=== PATIENT | female | born 1980 | race Caucasian/White ===

== ENCOUNTER 2017-03-30 15:50 | Emergency (ER) | payer OTHER ==
[~2017-03-30] VITALS: Wt 105.8 kg
[2017-03-30] MEDS ORDERED: GUAIFENESIN/CODEINE 5ML CUP PO ONE (19:00)
[2017-03-30] MEDS ORDERED: nyquil (19:27)
--- NOTE | 2017-03-30 19:28 | ERD ---
ER Documentation Chief Complaint Chief Complaint COUGH WITH PHLEGM, CONGESTION, ONSET 10 DAYS HPI 36-year-old female presents here to emergency department for complaints of cough congestion runny nose wheezing on and off for 10 days. Patient has been having dry cough, does not cough up any phlegm or blood. Patient denies any dyspnea on exertion or dyspnea on lying down. Patient denies any fever chills. Patient denies any chest pain. Patient denies any sick contacts. Patient took [id number] NyQuil to help with symptoms with mild relief. ROS All systems reviewed and are negative except as per history of present illness. Medications Home Meds Reported Medications [nyquil] Unknown Strength No Conflict Check 03/30/17 Allergies Allergies: Coded Allergies: acetaminophen (Verified Allergy, Unknown, 03/30/17) hydrocodone (Verified Allergy, Unknown, 03/30/17) metoclopramide (Verified Allergy, Unknown, 03/30/17) PMhx/Soc Medical and Surgical Hx: pt denies Medical Hx, pt denies Surgical Hx Hx Alcohol Use: No Hx Substance Use: No Hx Tobacco Use: No Smoking Status: Never smoker FmHx Family History: No coronary disease, No diabetes, No other Physical Exam Vitals Vital Signs Date Time Temp Pulse Resp B/P Pulse Ox O2 Delivery O2 Flow Rate FiO2 03/30/17 16:12 97.4 99 17 130/84 98 Physical Exam GENERAL: The patient is well developed and appropriate for usual state of health, in no apparent distress. CHEST: Clear to auscultation bilaterally. There are no rales, wheezes or rhonchi. HEART: Regular rate and rhythm. No murmurs, clicks, rubs or gallops. No S3 or S4. ABDOMEN: Soft, nontender and nondistended. Good bowel sounds. No rebound or guarding. No gross peritonitis. No gross organomegaly or masses. No Irene sign or McBurney point tenderness. BACK: No midline or flank tenderness. EXTREMITIES: Equal pulses bilaterally. There is no peripheral clubbing, cyanosis or edema. No focal swelling or erythema. Full range of motion. Grossly neurovascularly intact. NEURO: Alert and oriented. Cranial nerves 2-12 intact. Motor strength in all 4 extremities with 5/5 strength. Sensation grossly intact. Normal speech and gait. SKIN: There is no apparent rash or petechia. The skin is warm and dry. HEMATOLOGIC AND LYMPHATIC: There is no evidence of excessive bruising or lymphedema. No gross cervical, axillary, or inguinal lymphadenopathy. Results 24 hrs Current Medications Medications (Trade) Dose Ordered Sig/Beatriz Route PRN Reason Start Time Stop Time Status Last Admin Dose Admin Guaifenesin/ Codeine Phosphate (Robitussin Ac Liquid Cup) 10 ml ONCE ONCE PO 03/30/17 19:00 03/30/17 19:01 DC 03/30/17 19:22 Cough medication was given here in the emergency department, verbalizing much better afterwards. PROCEDURE: XR Chest. CLINICAL INDICATION: Cough for 10 days. TECHNIQUE: Single frontal view of the chest. COMPARISON: None. FINDINGS: The cardiomediastinal silhouette is within normal limits. The lungs are clear. No signs of pleural fluid or pneumothorax are seen. The osseous structures and soft tissues are unremarkable. IMPRESSION: No evidence for active cardiopulmonary disease. RPTAT: [facility] Physician Korey Date Time Electronically viewed and signed by Physician Korey on 03/30/2017 19:48 RS/ CC: LATOSHA ANDERSON SERVICE ESTABLISHMENT ATTENDANT Procedures/MDM Medical Decision Making: Patient symptoms are most likely consistent with acute bronchitis, most likely caused by atypical infection. There is low suspicion for Pneumonia at this time since patients lungs sounds are clear, patient O2 saturation is normal and patient doesnt show any respiratory distress. Patients chest xray doesnt show infiltrates or any other cardiopulmonary emergencies at this time. There is low suspicion for other cardiopulmonary emergencies at this time such as CHF, Pulmonary Embolism, Pneumothorax, Aortic Aneurysm or any other cardiopulmonary emergencies at this time. There is low suspicion for sepsis. Patient appears well and is hemodynamically stable. Disposition: Home. Condition: Stable Prescriptions: Guaifenesin with codeine azithromycin Zyrtec albuterol Instructions: Patient is advised to take medications as prescribed. Patient is advised to rest. Patient advised to increase fluid intake, do humidifier at home and if possible, do salt water gargles. Patient is advised that if symptoms are worse, shortness of breath, uncontrolled fever, stridor, vomiting, worst signs and symptoms to return to emergency department immediately. Otherwise, patient is advised to follow up with primary doctor in 5-7 days. Disclaimer: Inadvertent spelling and grammatical errors are likely due to EHR/ dictation software use and do not reflect on the overall quality of patient care. Also, please note that the electronic time recorded on this note does not necessarily reflect the actual time of the patient encounter. Departure Diagnosis: Primary Impression: Acute bronchitis Bronchitis organism: unspecified organism Qualified Code: J20.9 - Acute bronchitis, unspecified organism Condition: Stable Patient Instructions: Bronchitis With Wheezing (Adult) Additional Instructions: Patient is advised to take medications as prescribed. Patient is advised to rest. Patient advised to increase fluid intake, do humidifier at home and if possible, do salt water gargles. Patient is advised that if symptoms are worse, shortness of breath, uncontrolled fever, stridor, vomiting, worst signs and symptoms to return to emergency department immediately. Otherwise, patient is advised to follow up with primary doctor in 5-7 days. LATOSHA ANDERSON NP Mar 30, 2017 19:28
--- NOTE | 2017-03-30 19:48 | RADRPT ---
PROCEDURE: XR Chest. CLINICAL INDICATION: Cough for 10 days. TECHNIQUE: Single frontal view of the chest. COMPARISON: None. FINDINGS: The cardiomediastinal silhouette is within normal limits. The lungs are clear. No signs of pleural f luid or pneumothorax are seen. The osseous structures and soft tissues are unremarkable. IMPRESSION: No evidence for active cardiopulmonary disease. RPTAT: [facility] Physician Korey Date Time Electronically viewed and signed by Physician Korey on 03/30/2017 19:48 RS/
[2017-03-30] MEDS ORDERED: ALBU8.5H3 INH (19:58)
[2017-03-30] MEDS ORDERED: AZIT250T94 PO (19:58)
[2017-03-30] MEDS ORDERED: GUAI473L22 PO (19:58)
[2017-03-30] MEDS ORDERED: CETI10CA PO (19:58)
[2017-03-30 20:51] VITALS: BP 127/87; PULSE 89; RESP 19; TEMP 98
== END 2017-03-30 20:54 | disposition home or self-care (01) ==
LOC: FTE 15:50
DX: J20.9 Acute bronchitis, unspecified (principal)
CPT/HCPCS: 71010; Z7502; Z7610